=== PATIENT | female | born 1985 | race Caucasian/White ===

== ENCOUNTER → 2021-04-10 | Outpatient (CLI) | payer OTHER ==
[~2021-04-10] MED LIST: COLACE100 MG PO; IBUPROFEN600 MG PO; LEVONOR-ETH ES1 EAC1 PO; SUBOXONE 8 MG-1 EACH SL; ZOFRAN4 MG PO
== END ==
LOC: CT 07:32
DX: H47.20 Unspecified optic atrophy (principal)
CPT/HCPCS: 70470; Q9967